=== PATIENT | female | born 1965 | race Hispanic/Latino ===

== ENCOUNTER 2017-08-13 10:55 | Emergency (ER) | payer OTHER ==
[~2017-08-13] VITALS: Ht 157.5 cm; Wt 129.3 kg
[2017-08-13] MEDS ORDERED: FAMOTIDINE 20 MG/2 ML VIAL IV STA (11:13)
[2017-08-13] MEDS ORDERED: ONDANSETRON HCL INJ 2 MG/ML VIAL IV STA (11:13)
[2017-08-13] MEDS ORDERED: SODIUM CHLORIDE 0.9% 1000ML 1,000 ML IV ONE (11:15)
[2017-08-13] MEDS ORDERED: MORPHINE SULFATE INJ 4 MG/ML INJ IV ONE (11:15)
[2017-08-13] MEDS ORDERED: LEVOTHYROXINE100 MC1 IV (12:39)
[2017-08-13] MEDS ORDERED: KORLYM300 MG (12:39)
[2017-08-13] MEDS ORDERED: SPIRONOLACTONE100 MG (12:40)
[2017-08-13] MEDS ORDERED: TAMOXIFEN CITRA20 MG (12:41)
[2017-08-13 12:59] VITALS: BP 140/78
== END 2017-08-13 13:20 | disposition home or self-care (01) ==
LOC: FSED 10:55
DX: R10.12 Left upper quadrant pain (principal); R07.89 Other chest pain; R09.1 Pleurisy; I10 Essential (primary) hypertension
CPT/HCPCS: 80053; 81003; 82553; 84484; 85025; 99283; J2270; J2405; J7030; 93005